=== PATIENT | female | born 1970 | race Caucasian/White ===

== ENCOUNTER → 2017-03-15 | Outpatient (CLI) | payer OTHER ==
--- NOTE | 2017-03-15 14:25 | MAMMOGRAPHY REPORT ---
BILATERAL DIGITAL DIAGNOSTIC MAMMOGRAM TOMOSYNTHESIS WITH CAD AND TARGETED BILATERAL ULTRASOUND: 2016 CLINICAL HISTORY: The patient reports that her physician felt a palpable left breast lump, but the pa tient can not clearly feel the lump herself. The physician order states that the lump is located in the left breast at 6:00. TECHNIQUE: Breast tomosynthesis in addition to standard 2D mammography was performed. Current study was also evaluated with a Computer Aided Detection (CAD) system. Bilateral CC and MLO 2-D and tomosy nthesis images were obtained. COMPARISON: Comparison is made to exams dated: 12/23/2015 mammogram, 11/26/2014 ultrasound, 11/26/2014 mammogram, 11/05/2014 mammogram, 01/16/2013 mammogram, and 07/11/2011 mammogram - [facility] enter. BREAST COMPOSITION: The tissue of both breasts is heterogeneously dense, which may obscure small mas ses. FINDINGS: No suspicious mammographic abnormality is seen within the left 6:00 breast at the site of the palpable lump reported by the patients physician. There is an oval circumscribed 7 mm mass seen within the right slightly superior breast on the MLO view, for which ultrasound was performed. The r emainder of both breasts are stable compared to prior exams, without suspicious masses, calcification s, or areas of architectural distortion noted. Scattered bilateral benign-appearing calcifications a re stable. Targeted ultrasound was performed of the left 6:00 breast in the region of the palpable lump felt by the patient's physician. The patient could not pinpoint the lump herself. In the left 6:00 breast t here are multiple cysts and cyst clusters, including an oval circumscribed anechoic mass with a thin internal septation measuring 8 x 2 x 7 mm in the left breast at 6:00, 4 cm from the nipple, consisten t with a benign cyst. In the left breast at 6:00, 3 cm from the nipple, there is a round anechoic ci rcumscribed mass with thin internal septations measuring 6 x 5 mm, consistent with a benign cyst. An adjacent oval anechoic 3 mm cyst is also noted more anteriorly. In the left breast at 6:00, 2 cm fr om the nipple, there is an oval anechoic circumscribed mass with multiple thin internal septations co nsistent with a cyst cluster, measuring 6 x 3 x 5 mm. No suspicious solid masses are evident in this region. Targeted ultrasound was performed of the right slightly superior breast in the region of the circumsc ribed mammographic mass. Multiple cysts are also noted, including an oval anechoic 6 x 4 mm benign s imple cyst in the right breast at 1:00 periareolar region. This likely corresponds with the mammogra phic mass. Another cyst with thin internal septations is seen within the right breast at 9:00, 2 cm in the nipple, measuring 5 x 5 mm. A round anechoic cyst is seen within the right breast at 8:30, 3 cm from the nipple, measuring 7 x 6 mm. Multiple other cysts were also noted during the exam. No turk spicious solid masses were evident. IMPRESSION: ACR BI-RADS CATEGORY 2: BENIGN, TARGETED ULTRASOUND ACR BI-RADS CATEGORY 2: BENIGN Multiple small benign cysts seen within the left breast at 6:00 on ultrasound in the region of the pa lpable lump felt by the patient's physician. It is unclear if one of these cysts may correspond with the palpable lump, however, no suspicious solid masses were evident. Multiple benign cysts were als o noted in the right breast on ultrasound. There is no mammographic or targeted sonographic evidence of malignancy. Recommend clinical follow-up for the left breast palpable lump; any decision to biops y should be based on clinical grounds. Also recommend routine bilateral screening mammograms in one year. The patient has been verbally notified of the results. Approximately 10% of breast cancers are not detected with mammography. A negative mammographic report should not delay biopsy if a clinically suggestive mass is present. Maylin Noonan M.D. ah/:03/15/2017 11:49:54 [employer]: Elizabeth HURTADO(Derrick)(M), [facility] letter sent: Normal 1/2 BI-RADS Code: ACR BI-RADS Category 2: Benign Ultrasound BI-RADS: ACR BI-RADS Category 2: Benign
== END | disposition home or self-care (01) ==
LOC: C.MAMM 11:07
PROVIDERS: ATTEND Nurse Practitioner
DX: N63 Unspecified lump in breast (principal)